=== PATIENT | male | born 1980 | race Two or more races ===

== ENCOUNTER 2019-01-26 10:32 | Emergency (ER) | payer SELFPAY ==
[~2019-01-26] VITALS: Ht 172.7 cm; Wt 74.4 kg
--- NOTE | 2019-01-26 10:55 | NUR ---
Patient is reading the TDAP vaccine information@tis time, pending consent
[2019-01-26] MEDS ORDERED: SILVER SULFADIAZINE 1% CREAM 25 GM TUBE TP ONE (10:57)
[2019-01-26] MEDS ORDERED: TDAP DIPH,PERTUSS,TET VAC/PF 0.5 ML DISP.SYRIN IM ONE ×2 (11:00→11:17)
[2019-01-26] MEDS ORDERED: SILVER SULFADIAZINE 1% CREAM 50 GM TP ONE (11:00)
--- NOTE | 2019-01-26 11:20 | NUR ---
Patient wants MD tommy notified.
--- NOTE | 2019-01-26 11:21 | NUR ---
Crutches dispensed. Pt instructed on proper use of crutches. Patient able to demonstrate correct use of crutches.
--- NOTE | 2019-01-26 11:22 | NUR ---
Patient discharged to home in stable conditon & slow steady gait. Written and verbal after care instructions given to patient. Patient verbalizes understanding of instructions.
== END 2019-01-26 11:22 | disposition home or self-care (01) ==
LOC: ER 10:34
DX: S70.312A Abrasion, left thigh, initial encounter (principal); S70.311A Abrasion, right thigh, initial encounter; H57.11 Ocular pain, right eye; H57.12 Ocular pain, left eye; X58.XXXA Exposure to other specified factors, initial encounter; Y93.89 Activity, other specified; Y92.89 Other specified places as the place of occurrence of the external cause; Y99.8 Other external cause status
CPT/HCPCS: 73551; 90715; A4663